=== PATIENT | female | born 1995 | race African-American/Black ===

== ENCOUNTER 2019-07-28 08:27 | Emergency (ER) | payer OTHER, SELFPAY ==
--- NOTE | ~2019-07-28 | XR_ITS ---
EXAMINATION: XR chest 2V DATE: 07/28/2019 09:45 INDICATION: Productive cough TECHNIQUE: PA and lateral views of the chest were obtained. COMPARISON: Chest radiograph dated 05/07/2018 FINDINGS: The lungs remain clear with no focal airspace opacities, pulmonary edema, pleural effusion or pneumot horax. The cardiomediastinal silhouette is normal. Mild upper lumbar dextrocurvature. IMPRESSION: 1. No acute cardiopulmonary disease. Reviewed, dictated and finalized at location A. [employer]ICAL OFFICER
[2019-07-28 08:40] VITALS: BP 115/65; PULSE 83; RESP 18; TEMP 37.1; O2SAT 97
--- NOTE | 2019-07-28 08:42 | ED.GENADULT ---
HPI - General Adult General Chief complaint: Unspecified Stated complaint: st Time Seen by Provider: 07/28/19 08:42 Source: patient Mode of arrival: ambulatory Limitations: no limitations History of Present Illness HPI narrative: A 24 y/o female, who is 13 weeks , presents to the ED with c/o a productive cough with green phlegm for 1 day. Pt states it feels like my chest is on fire when I cough. 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 Pt took NyQuil with no relief. She reports a sore throat and SOB. Onset (ago): day(s) (1) Associated symptoms: shortness of breath and other (sore throat) Treatments prior to arrival: other (NyQuil) Related Data Home Medications Medication Instructions Recorded Confirmed 07/28/19 docusate sodium [DOK] PO 07/28/19 Allergies Allergy/AdvReac Type Severity Reaction Status Date / Time cefuroxime Allergy Hives Verified 07/28/19 08:48 Review of Systems Review of Systems: All systems reviewed & are unremarkable except as noted in HPI and below ENT: Reports sore throat Respiratory: Respiratory: Reports cough (productive with green phlegm) and Reports dyspnea PMFSH Past Medical History Medical History Bacterial vaginosis History of blood transfusion Miscarriage x5 UTI (urinary tract infection) Surgical History Surgical History H/O dilation and curettage Social History Social History Smoking status: Never smoker Gender identity (if verbalized by the patient): Male Comments No PCP on file. Exam Narrative: Exam Narrative: General appearance: Well-developed, well-nourished Skin: Normal color Head: Normocephalic, nontraumatic Eyes: Clear conjunctiva ENT: Oropharynx normal, ears normal, nose normal Neck: Supple, nontender Chest and respiratory: Airway patent, no respiratory distress, no accessory muscle use Heart: Regular rate/rhythm Abdomen: Soft, nontender, no organomegaly, quiet bowel sounds Vascular: Normal peripheral pulses, normal capillary refill. Musculoskeletal: Normal range of motion, nontender back Neurologic: Alert and oriented ?3, [employer] HELPER is normal as tested, no gross motor deficit Course Course Emergency Course: Unchanged Vital Signs Vital signs: Vital Signs Temperature 37.1 C 07/28/19 08:40 Pulse Rate 83 07/28/19 08:40 Respiratory Rate 18 07/28/19 08:40 Blood Pressure 115/65 07/28/19 08:40 Pulse Oximetry 97 07/28/19 08:40 Temperature 37.1 C 07/28/19 08:40 Pulse Rate 83 07/28/19 08:40 Respiratory Rate 18 07/28/19 08:40 Blood Pressure 115/65 07/28/19 08:40 Pulse Oximetry 97 07/28/19 08:40 Medical Decision Making MDM Narrative Medical decision making narrative: Upper respiratory viral infection is my concern Differential Diagnosis Differential Diagnosis: Upper respiratory viral infection, bronchitis, pharyngitis, pneumonia Vital Signs Vital Signs: Vital Signs Temperature 37.1 C 07/28/19 08:40 Pulse Rate 83 07/28/19 08:40 Respiratory Rate 18 07/28/19 08:40 Blood Pressure 115/65 07/28/19 08:40 Pulse Oximetry 97 07/28/19 08:40 Temperature 37.1 C 07/28/19 08:40 Pulse Rate 83 07/28/19 08:40 Respiratory Rate 18 07/28/19 08:40 Blood Pressure 115/65 07/28/19 08:40 Pulse Oximetry 97 07/28/19 08:40 Lab Data Labs: Influenza A Screen Negative Reference Range: Negative Influenza B Screen Negative Reference Range: Negative Strep Screen Pres
[2019-07-28 10:19] VITALS: BP 109/61; PULSE 86; RESP 16; TEMP 36.4; O2SAT 97
== END 2019-07-28 10:22 | disposition home or self-care (01) ==
PROVIDERS: Emergency Provider Emergency Medicine
DX: J06.9 Acute upper respiratory infection, unspecified (principal); Z87.440 Personal history of urinary (tract) infections
CPT/HCPCS: 71046; 87081; 87804; 87880; 99283

== ENCOUNTER 2020-11-27 19:23 | Emergency (ER) | payer OTHER, SELFPAY ==
[2020-11-27 19:31] VITALS: BP 127/84; PULSE 85; RESP 16; TEMP 36.4; O2SAT 100
--- NOTE | 2020-11-27 19:43 | ED.URI ---
HPI - URI/Sore Throat General Chief Complaint: Upper Respiratory Infection Stated Complaint: Runny Nose ,Sore Throat Time Seen by Provider: 11/27/20 19:43 Source: patient and RN notes reviewed Mode of arrival: ambulatory Limitations: no limitations History of Present Illness HPI Narrative: 25-year-old female presents concern for sore throat, nasal congestion, rhinorrhea, body aches, fatigue. Reports symptoms started Monday. Reports coughing in the morning with occasional dyspnea in the morning. Reports she is limited to what she can take because she is breast-feeding. She denies fever, nausea, vomiting, diarrhea, loss of sense of taste or smell. MD elicited complaint: sore throat Related Data Allergies Allergy/AdvReac Type Severity Reaction Status Date / Time cefuroxime Allergy Hives Verified 07/28/19 08:48 Review of Systems Review of Systems: Narrative: CONSTITUTIONAL: Reports malaise, fatigue. Denies chills, sweats, or fever. EYES: Denies visual changes, redness, or discharge. ENT: Reports rhinorrhea, congestion, sore throat. Denies sinus pain, otalgia CARDIOVASCULAR: Denies chest pain, palpitations, or edema. RESPIRATORY: Reports cough. Denies dyspnea. GASTROINTESTINAL: Denies abdominal pain, nausea, vomiting, diarrhea SKIN: Denies rash or itching. MUSCULOSKELETAL: Reports myalgia. NEUROLOGIC: Denies headache. All systems reviewed & are unremarkable except as noted in HPI and below PMFSH Past Medical History Medical History (Updated 11/27/20 @ 19:52 by Naila Boyce NP) Bacterial vaginosis History of blood transfusion Miscarriage x5 UTI (urinary tract infection) Surgical History Surgical History H/O dilation and curettage Social History Social History Smoking status: Never smoker Gender identity (if verbalized by the patient): Male Comments At time of signature, agree with nursing past medical, surgical, social and family history. There is no relevant family history pertinent to the presenting complaint Exam Narrative: Exam Narrative: GENERAL: Well-appearing, well-nourished, and in no acute distress. HEAD: Normocephalic EYES: PERRLA, conjunctivae clear ENT: Nares clear, turbinates edematous and erythematous, clear discharge. Mucous membranes moist. TM pearly garay with dull light reflex bilaterally; no tragal tenderness. Oropharynx erythematous without lesions. Tonsils enlarged and without exudate, no drooling, no hoarseness, no trismus, uvula midline. NECK: Supple. No lymphadenopathy CHEST: Clear to auscultation, breath sounds equal. No wheezing, rhonchi, rales, or stridor. No respiratory distress, speaks in full sentences. HEART: Regular rate and rhythm. No murmur heard. SKIN: Warm, dry, no rash. NEURO: Alert and oriented x3. PSYCH: Normal mood and affect Course Course Emergency Course: Patient is aware of diagnosis, understands and agrees to treatment plan. Anticipatory guidance given. Patient agrees to follow-up as directed and is aware of reasons to seek care at the emergency department. Portions of this record may have been created with voice recognition software Vital Signs Vital signs: Vital Signs Temperature 97.6 F 11/27/20 19:31 Pulse Rate 85 11/27/20 19:31 Respiratory Rate 16 11/27/20 19:31 Blood Pressure 127/84 11/27/20 19:31 Pulse Oximetry 100 11/27/20 19:31 Temperature 97.6 F 11/27/20 19:31 Pulse Rate 85 11/27/20 19:31 Respiratory Rate 16 11/27/20 19:31 Blood Pressure 127/84 11/27/20 19:31 Pulse Oximetry 100 11/27/20 19:31 Reviewed. MDM - URI/Sore Throat MDM Narrative Medical decision making narrative: Differential diagnosis considered: Ramos virus, strep pharyngitis, allergic rhinitis, upper respiratory tract infection, sinusitis, rhinosinusitis, nasopharyngitis. viral pharyngitis, otitis media, otitis externa, pneumonia, bronchitis, viral
== END 2020-11-27 20:07 | disposition home or self-care (01) ==
PROVIDERS: Emergency Provider Nurse Practitioner
DX: J06.9 Acute upper respiratory infection, unspecified (principal)
CPT/HCPCS: 87880; 99213; G0463

== ENCOUNTER 2023-01-03 15:07 | Emergency (ER) | payer OTHER, SELFPAY ==
--- NOTE | ~2023-01-03 | US_ITS ---
EXAMINATION: US OB <= 14 weeks fetus DATE: 01/03/2023 17:32 INDICATION: Spotting during . TECHNIQUE: Real-time transabdominal and transvaginal obstetric ultrasound. FINDINGS: No prior studies for comparison. The uterus measures 11.6 x 6.6 x 9.3 cm. There is a twin neck chorionic, diamniotic . Twin A measures 1.49 cm corresponding to 7 week 6 day gestation. heart rate is 175 BPM. Twin B measur es 1.43 cm corresponding to 7 week 5 day gestation. heart rate is 167 BPM. There is an involuti ng corpus luteal cyst of the right ovary measuring 4.9 cm. The left ovary is unremarkable. IMPRESSION: 1. Twin living dichorionic, diamniotic with an estimated gestational age of 7 weeks 5 days by current ultrasound (JUNE 08/17/2023). No significant abnormalities identified. Reviewed, dictated and finalized at location A. IMPRESSION: 1. Twin living dichorionic, diamniotic with an estimated gestational age of 7 weeks 5 days by current ultrasound (JUNE 08/17/2023). No significant ab normalities identified.
[2023-01-03 15:09] VITALS: BP 133/60; PULSE 79; RESP 16; TEMP 36.3; O2SAT 100
--- NOTE | 2023-01-03 16:02 | PC.NURSE ---
when going into room to start IV and get blood work pt started crying and reports she is afraid of needles. pt made aware of importance of blood work. pt agreed. when putting tourniquet on pt's arm pt started shaking and crying harder and states she does not want blood work done at this time. EDP made aware.
--- NOTE | 2023-01-03 16:07 | PC.NURSE ---
pt going to ultrasound at this time.
--- NOTE | 2023-01-03 16:15 | ED.GENADULT ---
HPI - General Adult General Chief complaint: Vaginal Bleeding Stated complaint: vag bleed, Time Seen by Provider: 01/03/23 15:34 History of Present Illness HPI narrative: Jane Arango is a 27 y/o female who reports of being with 5 miscarriages. She is not sure when her last menstrual cycle was or how far along she is. She reports having a positive test about 3-4 weeks ago. She comes in today with reports of intermittent light pink vaginal spotting for 4 days, denies abdominal pain/lower back pain Reports having mild nausea in the AM but has not been having issues with vomiting. Denies fever/chills. Related Data Allergies Allergy/AdvReac Type Severity Reaction Status Date / Time cefuroxime Allergy Hives Verified 07/28/19 08:48 Review of Systems Review of Systems: CONSTITUTIONAL: Denies fever, chills, or sweats. EYES: Denies visual changes, redness, or discharge. ENT: Denies rhinorrhea, congestion, sore throat, or otalgia. CARDIOVASCULAR: Denies chest pain, palpitations, or edema. RESPIRATORY: Denies cough or dyspnea. GASTROINTESTINAL: Denies abdominal pain, Reports some nausea in the morning no vomiting GENITOURINARY: Denies dysuria or hematuria. Reports of light pink vaginal spotting that has been off and on for 4 days. SKIN: Denies rash or itching. MUSCULOSKELETAL: Denies back pain, joint pain, or myalgia. NEUROLOGIC: Denies headache, numbness, dizziness, or weakness. PSYCHIATRIC: Denies anxiety or depression. [facility] Past Medical History Medical History (Updated 01/03/23 @ 19:18 by Sherine Merrill APRN) Bacterial vaginosis History of blood transfusion Miscarriage x5 UTI (urinary tract infection) Surgical History Surgical History H/O dilation and curettage Social History Social History Smoking status: Never smoker Gender identity (if verbalized by the patient): Male Exam Narrative: GENERAL: Well-appearing, well-nourished, and in no acute distress. HEAD: Normocephalic, atraumatic. EYES: PERRLA and EOMI. ENT: Nares clear, no rhinorrhea or epistaxis. Mucous membranes moist. Oropharynx without tonsillar hypertrophy exudate or other lesions. NECK: Supple. No adenopathy or masses. No carotid bruits or JVD CHEST: Clear to auscultation. No respiratory distress. No wheezes rales or rhonchi HEART: Regular rate and rhythm. No murmur heard. Normal peripheral pulses. ABDOMEN: Soft, nontender, nondistended, normal active bowel sounds. EXTREMITIES: Normal range of motion. No edema. SKIN: Warm, dry, no rash. NEURO: No focal deficits. Alert and oriented x3. PSYCH: Normal mood and affect. Course Vital Signs Vital signs: Vital Signs Temperature 36.3 C L 01/03/23 15:09 Pulse Rate 79 01/03/23 15:09 Respiratory Rate 16 01/03/23 15:09 Blood Pressure 133/60 01/03/23 15:09 Pulse Oximetry 100 01/03/23 15:09 Oxygen Delivery Room Air 01/03/23 15:09 Temperature 36.3 C L 01/03/23 15:09 Pulse Rate 79 01/03/23 15:09 Respiratory Rate 16 01/03/23 15:09 Blood Pressure 133/60 01/03/23 15:09 Pulse Oximetry 100 01/03/23 15:09 Oxygen Delivery Room Air 01/03/23 15:09 Medical Decision Making MDM Narrative Medical decision making narrative: With pt stating that she is and she is not sure how far along she is and is having light pink vaginal spotting concern for : Ectopic / threatened miscarriage/ dysfunctional uterine bleeding/ . She reports that she follows up with [facility] for her pregnancies but is unable to give any details of any recent visits and states that she has missed her last scheduled appointment. I do not have access to her records here and will plan to check her RH factor/CBC and ultrasound to confirm intrauterine Updated pt with my concerns and plan for care and she verbalizes understanding and agrees. [place]
[2023-01-03 17:07] LABS: Appearance Urine Cloudy (Clear); Bacteria Urine Rare /hpf; Bilirubin Urine Negative (Negative); Blood Urine 3+ (Negative); Color Urine Yellow (Yellow); Glucose Urine UA Negative (Negative); Ketones Urine Negative (Negative); Leukocyte Esterase Ur Trace LEU/UL (Negative); Nitrate Urine Negative (Negative); Non Pathogenic Casts 0-2; Protein Urine Trace mg/dL (Negative); RBC Urine 0-2 /hpf (0-2); Specific Grav Ur 1.021 (1.001-1.035); Squamous Epithelial Cell Urine Few /hpf (Few)
[2023-01-03 17:11] LABS: Add Urine Microscopic? YES
[2023-01-03 18:05] LABS: Basophils Percent Auto 0.4 % (0.2-1.2); Eosinophils Absolute Auto 0.1 K/mm3 (0-0.3); Eosinophils Percent Auto 0.5 % (0-4.4); Hematocrit 40.9 % (37.0-47.0); Hemoglobin 13.6 g/dL (12.0-15.0); Immature Granulocyte Absolute 0.04 K/mm3 (0.00-0.031); Immature Granulocyte Percent A 0.4 % (0-0.5); Lymphocytes Absolute Auto 1.73 K/mm3 (0.9-3.2); Lymphocytes Percent Auto 16.6 % (18.3-44.2); Mean Corpuscular HGB Conc 33.3 g/dl (32-36); Mean Corpuscular Hemoglobin 27.8 pg (26-34); Mean Corpuscular Volume 83.5 fl (80-100); Mean Platelet Volume 9.3 fl (7.4-10.4); Monocytes Absolute Auto 0.5 K/mm3 (0.1-0.6); Monocytes Percent Auto 4.3 % (2.6-8.5); Neutrophils Absolute Auto 8.1 K/mm3 (1.3-6.7); Neutrophils Percent Auto 77.8 % (45.5-73.1); Platelet Count Result 412 k/mm3 (150-375); Red Cell Distribution Width 14.5 % (11.5-14.5); White Blood Count 10.4 K/mm3 (4.5-10.0)
[2023-01-03] MEDS: NITROFURANTOIN MONOHYD MACROCR 100 MG CAP PO (19:31)
[2023-01-03 21:54] LABS: Beta HCG Quantitative > 300000.00 mIU/ML
== END 2023-01-03 19:36 | disposition home or self-care (01) ==
PROVIDERS: Emergency Provider Nurse Practitioner Family
DX: O20.0 Threatened abortion (principal); Z3A.01 Less than 8 weeks gestation of pregnancy; O23.11 Infections of bladder in pregnancy, first trimester
CPT/HCPCS: 36415; 76801; 81001; 81025; 84702; 85025; 86850; 86900; 86901; 87086; 99284; A9270